=== PATIENT | female | born 1930 | race Caucasian/White ===

== ENCOUNTER 2016-12-23 20:22 | Inpatient (IN) | payer MEDICARE ==
[~2016-12-23 20:22] MED LIST: ADULT ASPIRIN81 MG; ALEVE220 M3 PO; CALCIUM; CALCIUM600 MG PO; COLACE100 MG; COUMADIN3 M1 PO; COZAAR25 MG PO; CYMBALTA60 MG; CYMBALTA60 MG PO; FOLIC ACID0.4 MG; HARD NAILS PO; IRON325 ( 65 ) PO; LEVOTHROID112 MCG; LEVOTHYROXINE100 MC1 PO; LISINOPRIL40 MG; MAGNESIUM500 M1; MAGOX400 MG; MIRALAX17 GM PO; NORVASC2.5 M1 PO; OCUVITE TABLET1 TAB; OMEGA 31 CAP; PERCOCET 5/3251 TAB PO; SENOKOT8.6 MG PO; SYNTHROID112 MCG; TRAZODONE50 MG; TRAZODONE50 MG PO; VITAMIN B12 PO; VITAMIN C500 MG; VITAMIN D31000 UNI3 PO; VITAMIN D400 UNIT; ZETIA10 M1 PO
--- NOTE | 2016-12-23 21:15 | NUR ---
VIRTUAL CARE NOTE: PT. IN BED WITH FAMILY AT HER SIDE, VIRTUAL NURSE ROLE AND CAMERA EDUCATION PROVIDED, AND INFORMATION OF [employer] AND HOW TO USE THE CALL LIGHT REVIEWED. PT. AND FAMILY INSTRUCTED TO CALL FOR FUTURE NEEDS. STATES VERBAL UNDERSTANDING.
[2016-12-23] MEDS ORDERED: vitamin b 12 PO (22:04)
[2016-12-23] MEDS ORDERED: ADVAIR 25028 BLISTE1 PO (22:04)
[2016-12-24 05:09] LABS: INR 1.6 INR (0.9-1.1); PROTHROMBIN TIME 18.7 SECONDS (9.0-13.6)
[2016-12-24 05:15] LABS: BASO % 0.1 % (0-2); EOS % 2.5 % (0-7); EOSINOPHIL ABSOLUTE COUNT 0.2 tho/cmm (0.0-0.7); HCT-HEMATOCRIT 43.5 % (34.0-49.0); HGB-HEMOGLOBIN 14.2 gm/dl (12.0-15.5); IMMATURE GRANULOCYTES ABSOLUTE 0.02 tho/cmm (0-0.03); IMMATURE GRANULOCYTES PERCENT 0.3 % (0-0.3); LYMPH % 4.2 % (20-45); LYMPH ABSOLUTE COUNT 0.3 tho/cmm (0.8-4.5); MCHC MEAN CORPUSCULAR HGB CONC 32.6 % (32.0-36.0); MEAN PLATELET VOLUME 10.3 cmc (9.4-12.4); MONO % 2.8 % (0-12); MONOCYTE ABSOLUTE COUNT 0.2 tho/cmm (0.0-1.2); NEUTROPHIL ABSOLUTE COUNT 6.5 tho/cmm (1.6-8.0); NEUTROPHIL-AUTOMATED 6.5 tho/cmm (1.6-8.0); NEUTROPHILS % 90.1 % (40-80); PLATELET COUNT 136 tho/cmm (150-450); RED BLOOD COUNT 4.73 mil/cmm (4.00-5.20); RED CELL DISTRIBUTION WIDTH 14.4 % (12.4-16.4); WHITE BLOOD COUNT 7.2 tho/cmm (4.0-10.0)
[2016-12-24 05:21] LABS: ALB/GLOB RATIO 1.4 (0.8-2.0); ALBUMIN 3.6 g/dl (3.5-5.0); ALKALINE PHOSPHATASE 66 U/L (33-138); ALT/SGPT 17 U/L (12-78); ANION GAP 10 mmol/L (0-20); AST/SGOT 20 U/L (10-40); BILIRUBIN,TOTAL 0.5 mg/dl (0-1.5); BLOOD UREA NITROGEN 12 mg/dl (6-24); CALCIUM 7.8 mg/dl (8.5-10.5); CARBON DIOXIDE-VENOUS 26 mmol/L (22-32); CHLORIDE 113 mmol/l (96-110); CREATININE 0.56 mg/dl (0.50-1.10); GLUCOSE 105 mg/dL (70-110); POTASSIUM 4.1 mmol/L (3.7-5.1); SODIUM 145 mmol/L (135-145); eGFR VALUE FOR BLACK >90 mL/Min
[2016-12-24 05:26] LABS: TSH-THYROID STIMULATING HORM. 0.26 uIU/ml (0.40-3.80)
[2016-12-25 07:28] LABS: HCT-HEMATOCRIT 41.3 % (34.0-49.0); HGB-HEMOGLOBIN 13.3 gm/dl (12.0-15.5); MCHC MEAN CORPUSCULAR HGB CONC 32.2 % (32.0-36.0); MEAN PLATELET VOLUME 9.8 cmc (9.4-12.4); PLATELET COUNT 118 tho/cmm (150-450); RED BLOOD COUNT 4.44 mil/cmm (4.00-5.20); RED CELL DISTRIBUTION WIDTH 14.7 % (12.4-16.4); WHITE BLOOD COUNT 5.6 tho/cmm (4.0-10.0)
[2016-12-25 07:32] LABS: INR 2.3 INR (0.9-1.1)
[2016-12-25 07:38] LABS: PROTHROMBIN TIME 27.9 SECONDS (9.0-13.6)
[2016-12-25 07:43] LABS: ANION GAP 14 mmol/L (0-20); BLOOD UREA NITROGEN 11 mg/dl (6-24); CALCIUM 7.3 mg/dl (8.5-10.5); CARBON DIOXIDE-VENOUS 19 mmol/L (22-32); CHLORIDE 118 mmol/l (96-110); CREATININE 0.37 mg/dl (0.50-1.10); MAGNESIUM 2.3 mg/dl (1.8-2.6); POTASSIUM 3.7 mmol/L (3.7-5.1); SODIUM 147 mmol/L (135-145); eGFR VALUE FOR BLACK >90 mL/Min
[2016-12-25 07:49] LABS: GLUCOSE 45 mg/dL (70-110)
[2016-12-25 08:59] LABS: BAND % 31 % (0-20); BAND ABSOLUTE COUNT 1.7 tho/cmm (0-2.0); EOSINOPHIL % 1 % (0-7)
[2016-12-26 06:06] LABS: INR 2.4 INR (0.9-1.1); PROTHROMBIN TIME 28.4 SECONDS (9.0-13.6)
[2016-12-26 06:12] LABS: ANION GAP 11 mmol/L (0-20); BLOOD UREA NITROGEN 6 mg/dl (6-24); CALCIUM 7.4 mg/dl (8.5-10.5); CARBON DIOXIDE-VENOUS 24 mmol/L (22-32); CHLORIDE 111 mmol/l (96-110); CREATININE 0.39 mg/dl (0.50-1.10); POTASSIUM 3.1 mmol/L (3.7-5.1); SODIUM 143 mmol/L (135-145); eGFR VALUE FOR BLACK >90 mL/Min
[2016-12-26 06:16] LABS: GLUCOSE 76 mg/dL (70-110)
[2016-12-26 06:44] LABS: INR 2.4 INR (0.9-1.1); PROTHROMBIN TIME 28.3 SECONDS (9.0-13.6)
[2016-12-26] MEDS ORDERED: SYNTHROID75 MC1 PO (14:08)
[2016-12-26] MEDS ORDERED: OMEPRAZOLE20 M4 PO (14:08)
== END 2016-12-26 15:15 | DRG 389 ==
LOC: 5WD 20:22
PROVIDERS: Internal Medicine; Registered Nurse; ADMIT Family Medicine
DX: K56.60 Unspecified intestinal obstruction (principal); E87.1 Hypo-osmolality and hyponatremia; I48.91 Unspecified atrial fibrillation; J44.9 Chronic obstructive pulmonary disease, unspecified; E87.6 Hypokalemia; I10 Essential (primary) hypertension; E78.5 Hyperlipidemia, unspecified; E03.9 Hypothyroidism, unspecified; F17.210 Nicotine dependence, cigarettes, uncomplicated; R63.4 Abnormal weight loss; Z68.21 Body mass index [BMI] 21.0-21.9, adult; I25.10 Atherosclerotic heart disease of native coronary artery without angina pectoris; G47.33 Obstructive sleep apnea (adult) (pediatric); K21.9 Gastro-esophageal reflux disease without esophagitis; Z79.51 Long term (current) use of inhaled steroids; Z79.01 Long term (current) use of anticoagulants; Z79.1 Long term (current) use of non-steroidal anti-inflammatories (NSAID); Z79.899 Other long term (current) drug therapy
CPT/HCPCS: C9113; J2060; J2405; J7030